=== PATIENT | male | born 1945 | race Two or more races ===

== ENCOUNTER 2021-12-26 20:37 | Emergency (ER) | payer MEDICARE, OTHER ==
[~2021-12-26] VITALS: Ht 170.2 cm; Wt 82.5 kg
[2021-12-26 20:37] VITALS: BP 152/93
== END 2021-12-26 21:32 | disposition left against medical advice (07) ==
LOC: ER 20:37
DX: I10 Essential (primary) hypertension (principal); Z53.21 Procedure and treatment not carried out due to patient leaving prior to being seen by health care provider